=== PATIENT | male | born 1965 | race Caucasian/White ===

== ENCOUNTER 2022-05-09 07:18 | Emergency (ER) | payer BC ==
[~2022-05-09] VITALS: Ht 188 cm; Wt 105.9 kg
--- NOTE | 2022-05-09 09:11 | NUR ---
Pt was in the bath tub and fell and hit his left and Left head on the side of the tub.
[2022-05-09 09:32] VITALS: BP 127/74
== END 2022-05-09 09:36 | disposition home or self-care (01) ==
LOC: ER 07:18
DX: S09.90XA Unspecified injury of head, initial encounter (principal); R07.81 Pleurodynia; W18.39XA Other fall on same level, initial encounter; Y93.E1 Activity, personal bathing and showering; Y92.091 Bathroom in other non-institutional residence as the place of occurrence of the external cause; Y99.8 Other external cause status
CPT/HCPCS: 71045; 99284